=== PATIENT | male | born 1935 | race Caucasian/White ===

== ENCOUNTER 2018-08-01 15:50 | Emergency (ER) | payer OTHER ==
[~2018-08-01] VITALS: Ht 180.3 cm; Wt 77.1 kg
[2018-08-01] MEDS ORDERED: FINASTERIDE5 MG (17:24)
[2018-08-01] MEDS ORDERED: PARACETAMOL (17:25)
[2018-08-01] MEDS ORDERED: WARFARIN SODIUM3 MG (17:26)
[2018-08-01] MEDS ORDERED: COUMADIN1 MG (17:26)
[2018-08-01] MEDS ORDERED: ALTACE5 MG (17:27)
[2018-08-01] MEDS ORDERED: LASIX20 MG (17:27)
[2018-08-01] MEDS ORDERED: CARBAMAZEPINE200 M3 (17:28)
[2018-08-01] MEDS ORDERED: ATORVASTATIN CA40 MG (17:28)
== END 2018-08-01 20:42 | disposition home or self-care (01) ==
LOC: ER 15:50
DX: K58.1 Irritable bowel syndrome with constipation (principal)